=== PATIENT | female | born 1960 | race Caucasian/White ===

== ENCOUNTER 2018-04-27 16:00 | Inpatient (IN) | payer OTHER ==
[~2018-04-27] VITALS: Ht 167.6 cm; Wt 90.7 kg
[2018-04-27 16:08] VITALS: BP 184/89
[2018-04-27] MEDS ORDERED: NALOXONE PFS 2 MG/2 ML SYR ONE ×2 (16:10→16:26)
[2018-04-27] MEDS ORDERED: NALOXONE PFS 2 MG/2 ML SYR IVP ONE (16:15)
[2018-04-27 16:40] LABS: BASOPHILS # (AUTO) 0.1 K/uL (0.00-0.22); BASOPHILS % (AUTO) 0.5 % (0.0-2.0); EOSINOPHILS # (AUTO) 0.3 K/uL (0-0.4); EOSINOPHILS % (AUTO) 2.8 % (0.0-4.0); HEMATOCRIT 40.3 % (36-48); LYMPHOCYTES # (AUTO) 5.2 K/uL (2.5-16.5); MEAN CORPUSCULAR HEMOGLOBIN 28 pg (27-31); MEAN CORPUSCULAR HGB CONC 32 g/dL (33-37); MEAN CORPUSCULAR VOLUME 87.6 fL (80-94); MONOCYTES # (AUTO) 0.9 K/uL (0.8-1.0); MONOCYTES % (AUTO) 9.2 % (1.7-9.3); NEUTROPHILS # (AUTO) 3.9 K/uL (1.8-7.7); NEUTROPHILS % (AUTO) 37.5 % (42.2-75.2); PLATELET COUNT (AUTO) 363 K/uL (140-450); RED CELL DISTRIBUTION WIDTH 13.5 % (11.6-13.7); WHITE BLOOD COUNT (AUTO) 10.3 K/uL (4.8-10.8)
[2018-04-27 16:57] LABS: ANION GAP 14.2 (8-16); CREATININE 0.8 mg/dL (0.6-1.3); POTASSIUM 3.2 mmol/L (3.5-5.1)
[2018-04-27 17:03] LABS: ALBUMIN 3.9 g/dL (3.4-5.0); TOTAL BILIRUBIN 0.4 mg/dL (0.0-1.0)
[2018-04-27] MEDS ORDERED: HYDROcodone/APAP 5/325 MG 1 TAB TAB PO PRN (19:15)
[2018-04-27] MEDS ORDERED: ACETAMINOPHEN 325 MG TAB PO PRN (19:15)
[2018-04-27] MEDS ORDERED: ONDANSETRON 4 MG/2 ML VIAL IVP PRN (19:15)
[2018-04-27] MEDS ORDERED: LORazepam 2 MG/ML VIAL IVP PRN (19:15)
[2018-04-27 19:55] VITALS: BP 112/75
[2018-04-27] MEDS: NACL 0.9% 1,000 ML IV SCH (20:06)
[2018-04-28] VITALS: BP 100/64
[2018-04-28] MEDS: traMADol 50 MG TAB PO PRN ×3 (00:10→08:59)
[2018-04-28 04:00] VITALS: BP 105/54
[2018-04-28] MEDS: NACL 0.9% 1,000 ML IV SCH (05:25)
[2018-04-28 06:00] LABS: BASOPHILS % (AUTO) 0.5 % (0.0-2.0); EOSINOPHILS # (AUTO) 0.2 K/uL (0-0.4); EOSINOPHILS % (AUTO) 2.8 % (0.0-4.0); HEMATOCRIT 34.8 % (36-48); HEMOGLOBIN 11.4 g/dL (12.0-16.0); LYMPHOCYTES # (AUTO) 1.4 K/uL (2.5-16.5); LYMPHOCYTES % (AUTO) 25.3 % (20.5-51.1); MEAN CORPUSCULAR HEMOGLOBIN 29 pg (27-31); MEAN CORPUSCULAR HGB CONC 33 g/dL (33-37); MONOCYTES # (AUTO) 0.6 K/uL (0.8-1.0); MONOCYTES % (AUTO) 10.9 % (1.7-9.3); NEUTROPHILS # (AUTO) 3.5 K/uL (1.8-7.7); NEUTROPHILS % (AUTO) 60.5 % (42.2-75.2); PLATELET COUNT (AUTO) 269 K/uL (140-450); RED BLOOD CELL COUNT(AUTO) 3.95 MIL/uL (4.20-5.40); RED CELL DISTRIBUTION WIDTH 13.6 % (11.6-13.7); WHITE BLOOD COUNT (AUTO) 5.7 K/uL (4.8-10.8)
[2018-04-28 07:54] LABS: CARBON DIOXIDE 27.3 mmol/L (21-32); POTASSIUM 3.5 mmol/L (3.5-5.1)
[2018-04-28 07:55] LABS: CREATININE 0.8 mg/dL (0.6-1.3)
[2018-04-28 08:00] VITALS: BP 93/50
[2018-04-28] MEDS ORDERED: ENOXAPARIN 40 MG/0.4 ML SYR SUBQ SCH (09:00)
== END 2018-04-28 10:32 | disposition home or self-care (01) | DRG 917 ==
LOC: EDBD 16:00 → MED 16:00 → MTU 19:14
PROVIDERS: ADMIT Internal Medicine; ATTEND Internal Medicine
DX: T40.1X1A Poisoning by heroin, accidental (unintentional), initial encounter (principal); G92 Toxic encephalopathy; G89.29 Other chronic pain; M51.26 Other intervertebral disc displacement, lumbar region; Y92.89 Other specified places as the place of occurrence of the external cause
CPT/HCPCS: 36415; 71045; 80048; 80053; 83735; 84484; 85025; 87081; 93005; 96374; 99291; J1650; J2310; J7030; Q0092

== ENCOUNTER 2021-03-31 16:48 | Emergency (ER) | payer OTHER ==
[~2021-03-31] VITALS: Ht 170.2 cm; Wt 83.5 kg
--- NOTE | 2021-03-31 16:48 | NUR ---
1647 BIBA ALS TO ER BED 9
--- NOTE | 2021-03-31 16:55 | NUR ---
TRANFERRED TO ER BED 7
[2021-03-31 17:07] VITALS: BP 141/72
--- NOTE | 2021-03-31 17:12 | NUR ---
PD BEDSIDE SPEAKING WITH PATIENT
--- NOTE | 2021-03-31 17:12 | NUR ---
LAB BEDSIDE WITH PATIENT
--- NOTE | 2021-03-31 17:21 | NUR ---
60 Y FEMALE BIBA FROM [facility] DUE TO BEING FOUND UNCONCIOUS IN HER CAR. PER EMS PT INGESTED UNKNOWN MEDICATION IN FIELD, BUT WAS FOUND WITH PINPOINT PUPILS AND RESPONSIVE ONLY TO PAIN. 2MG NCARCAN INTRA-NASAL GIVEN IN THE FIELD. 20 GUAGE IV IN L AC ESTABLISHED IN FIELD BY EMS. GLUCOSE 278 ON ARRIVAL. PT CURRENTLY 96% ON RA AND EQUAL CHEST RISE AND FALL NOTED. PT MORE AROSABLE AT THIS TIME, BUT NOT FULL CONCIOUS. PT A&OX2 WITH CLEAR SPEECH. PERRL INTACT [facility]: DEPRESSION NKA
[2021-03-31 17:24] LABS: BASOPHILS % (AUTO) 0.4 % (0.0-2.0); EOSINOPHILS # (AUTO) 0.2 K/uL (0-0.4); HEMATOCRIT 35.9 % (36-48); HEMOGLOBIN 11.8 g/dL (12.0-16.0); LYMPHOCYTES # (AUTO) 2.2 K/uL (2.5-16.5); LYMPHOCYTES % (AUTO) 20.7 % (20.5-51.1); MEAN CORPUSCULAR HEMOGLOBIN 29 pg (27-31); MEAN CORPUSCULAR HGB CONC 33 g/dL (33-37); MEAN CORPUSCULAR VOLUME 88.7 fL (80-94); MONOCYTES # (AUTO) 0.6 K/uL (0.8-1.0); NEUTROPHILS # (AUTO) 7.7 K/uL (1.8-7.7); NEUTROPHILS % (AUTO) 70.9 % (42.2-75.2); PLATELET COUNT (AUTO) 310 K/uL (140-450); RED BLOOD CELL COUNT(AUTO) 4.05 MIL/uL (4.20-5.40); RED CELL DISTRIBUTION WIDTH 13.8 % (11.6-13.7); WHITE BLOOD COUNT (AUTO) 10.8 K/uL (4.8-10.8)
--- NOTE | 2021-03-31 17:25 | NUR ---
PT REQUESTING TO LEAVE AMA. PT CURRENTLY A&OX4. ER MD DR. RICHARDS MADE AWARE
[2021-03-31 17:39] LABS: ANION GAP 12.6 (8-16); CARBON DIOXIDE 27.9 mmol/L (21-32); CREATININE 1.2 mg/dL (0.6-1.3); POTASSIUM 3.5 mmol/L (3.5-5.1)
--- NOTE | 2021-03-31 17:39 | NUR ---
Patient does not wish to proceed with medical care recommended by DR. RICHARDS. Patient given information related to possible complications, up to and including , which could occur as a result of leaving hospital at this time. Patient verbalizes understanding of risks involved leaving against medical advice. Patient has signed AMA form.
[2021-03-31 17:41] VITALS: BP 141/72
== END 2021-03-31 17:35 | disposition left against medical advice (07) ==
LOC: MED 16:48
DX: T42.4X4A Poisoning by benzodiazepines, undetermined, initial encounter (principal); T40.604A Poisoning by unspecified narcotics, undetermined, initial encounter; G93.40 Encephalopathy, unspecified; R41.0 Disorientation, unspecified; F32.9 Major depressive disorder, single episode, unspecified; Y92.89 Other specified places as the place of occurrence of the external cause
CPT/HCPCS: 36415; 80048; 85025; 93005; 99284